=== PATIENT | female | born 1995 | race Caucasian/White ===

== ENCOUNTER → 2021-06-20 08:53 | Outpatient (CLI) | payer OTHER, SELFPAY ==
[2021-06-20 12:22] LABS: COVID19 -Nasal RAPID Negative (Negative)
== END ==
PROVIDERS: Visit Provider Nurse Practitioner Family
DX: Z20.822 Contact with and (suspected) exposure to COVID-19 (principal); Z01.812 Encounter for preprocedural laboratory examination
CPT/HCPCS: 87635

== ENCOUNTER → 2021-06-21 14:01 | Outpatient (CLI) | payer OTHER, SELFPAY ==
--- NOTE | 2021-06-21 14:04 | DI.NM.S_ITS ---
PROCEDURE: NM EXERCISE TREADMILL NON NUC COMPARISON: None. INDICATIONS: Chest pain, unspecified FINDINGS: Resting ECG sinus rhythm. Anderson protocol 9 minutes, 24 seconds; peak heart rate 185 (94% peak predicted); max blood pressure 160/92; 10.1 METS; TINO +11%. Exercise ECG sinus tachycardia, no ST segment changes, no arrhythmia. IMPRESSION: 1. No evidence of exercise-induced ischemia or arrhythmia. 2. Good exercise capacity. 3. Normal blood pressure response to exercise. Dictated by: Zenobia Apodaca D.O. on 06/21/2021 at 15:51 Approved by: Zenobia Apodaca M.D. on 06/21/2021 at 15:55
== END ==
PROVIDERS: Referring Provider Student in an Organized Health Care Education/Training Program; Visit Provider Student in an Organized Health Care Education/Training Program
DX: R07.9 Chest pain, unspecified (principal)
CPT/HCPCS: 93017

== ENCOUNTER → 2022-02-01 10:29 | Outpatient (CLI) | payer OTHER, SELFPAY ==
[2022-02-01 14:13] LABS: Urine Chlamydia NOT DETECTED; Urine N gonorrhoeae NOT DETECTED
== END ==
PROVIDERS: Visit Provider Family Medicine
DX: Z34.81 Encounter for supervision of other normal pregnancy, first trimester (principal); Z3A.09 9 weeks gestation of pregnancy
CPT/HCPCS: 87491; 87591

== ENCOUNTER → 2022-02-01 10:44 | Outpatient (CLI) | payer OTHER, SELFPAY ==
[2022-02-01 11:53] LABS: Add Manual Diff / Slide Review NO; Basophils Absolute Auto 0 /uL (0-100); Basophils Percent Auto 0.6 % (0-2); Eosinophils Absolute Auto 100 /uL (0-450); Eosinophils Percent Auto 1.9 % (2-4); Hematocrit 37.8 % (36-46); Hemoglobin 13.1 g/dL (12.0-16.0); Lymphocytes Absolute Auto 1500 /uL (1100-4500); Lymphocytes Percent Auto 19.1 % (25-40); Mean Corpuscular HGB Conc 34.7 % (30-36); Mean Corpuscular Hemoglobin 31.3 PG (26-34); Mean Corpuscular Volume 90.2 fL (80-100); Monocytes Absolute Auto 500 /uL (0-900); Monocytes Percent Auto 6.3 % (3-14); Neutrophils Absolute Auto 5500 /uL (1500-7000); Neutrophils Percent Auto 72.1 % (50-75); Platelet Count 212 X10^3/uL (150-400); Red Blood Cell Count 4.19 X10^6/uL (4.0-5.2); Red Cell Distribution Width 12.1 % (11.6-14.8); White Blood Cell Count 7.6 X10^3/uL (4.5-11.0)
[2022-02-01 12:23] LABS: Appearance Urine UA CLEAR; Bilirubin Urine UA NEGATIVE (NEGATIVE); Color Urine UA YELLOW; Glucose Urine UA NEGATIVE (Negative); Ketones Urine UA NEGATIVE (NEGATIVE); Leukocyte Esterase Urine UA NEGATIVE (NEGATIVE); Nitrite Urine UA NEGATIVE (Negative); Occult Blood Urine UA NEGATIVE (Negative); Protein Urine UA NEGATIVE (Negative); Specific Gravity Urine UA <=1.005 (1.000-1.035); Urobilinogen Urine UA 0.2 E.U./dL (0.2)
[2022-02-01 12:25] LABS: pH Urine UA 6.5 (4.5-8.0)
[2022-02-02 06:56] LABS: RPR Screen Non Reactive (Non Reactive)
[2022-02-02 12:18] LABS: Varicella IgG Antibody 266 index (Immune >165)
[2022-02-02 20:01] LABS: Rubella Antibody IgG 52.1 IU/mL (>15)
[2022-02-02 20:03] LABS: HIV 1 & 2 Ab/Ag 4th Gen Combo NEGATIVE (NEGATIVE); Hep C Virus Ab w/Reflex Quant NEGATIVE s/c (NEGATIVE); Hepatitis B Surface Antigen NEGATIVE s/c (NEGATIVE)
== END ==
PROVIDERS: Referring Provider Family Medicine; Visit Provider Family Medicine
DX: Z36.89 Encounter for other specified antenatal screening (principal); Z11.3 Encounter for screening for infections with a predominantly sexual mode of transmission; Z3A.09 9 weeks gestation of pregnancy
CPT/HCPCS: 36415; 80055; 81003; 86787; 86803; 86850; 86900; 86901; 87086; 87389; 87491; 87591

== ENCOUNTER → 2022-03-29 15:25 | Outpatient (CLI) | payer OTHER, BC, SELFPAY ==
[2022-03-31 19:57] LABS: Estriol, Free 1.08 ng/mL (.); Inhibin A, Dimeric 128.83 pg/mL (.); Inhibin A, MoM 0.87 (.); Maternal Ethnicity Caucasian (.); Maternal Weight 157 lbs (.); Number of Fetuses No (.); OSBR Risk 1 IN 10000 (.); Results Report (.); Test Results *Screen Negative* (.); hCG, MoM 1.19 (.); hCG, Serum 35557 mIU/mL (.)
== END ==
PROVIDERS: PCP Student in an Organized Health Care Education/Training Program; Referring Provider Family Medicine; Visit Provider Family Medicine
DX: Z34.92 Encounter for supervision of normal pregnancy, unspecified, second trimester (principal); Z3A.17 17 weeks gestation of pregnancy
CPT/HCPCS: 36415; 82105; 82677; 84702; 86336

== ENCOUNTER → 2022-04-14 10:44 | Outpatient (CLI) | payer OTHER, BC, SELFPAY ==
--- NOTE | 2022-04-14 10:45 | DI.US.S_ITS ---
PROCEDURE: US OB >= 14 WEEKS FETUS INDICATIONS: Anatomy Screen OUTSIDE/PRIOR DATING DATA: Last menstrual period (LMP): 11/25/2021 LMP-based estimated date of delivery (EILZABETH): 09/01/2022 First dating scan (date and location): 04/14/2022 Estimated date of delivery (ELIZABETH) from first dating scan: 08/29/2022 TECHNIQUE: Real-time scanning was performed of the fetus, with image documentation and biometric measurements. Endovaginal scanning: None COMPARISON: None. FINDINGS: General: A single living intrauterine gestation is present. Presentation: Transverse maternal left Placenta: Anterior, without previa Amniotic fluid index: 13.5 centimeters heart rate: 155 beats per minute Maternal cervical canal: 4.6 centimeters biometrics: Biparietal diameter: 4.9 centimeters Head circumference: 18 centimeters Abdominal circumference: 15.1 centimeters Femur length: 3.3 centimeters Clinically estimated gestational age: 20 weeks Composite gestational age from present scan: 20 weeks and 3 days Estimated weight and percentile: 344 grams, 62 percentile Anatomic survey: Neuro: Ventricles are non-dilated at less than 10 mm. Cisterna magna is normal at 3-11 mm. Cerebellum is normal in size and morphology. Nuchal skin fold: Normal at less than 6 mm between 14-21 weeks gestational age. Face: Nose/lips and profile view are not well seen. Spine: No evidence for spina bifida. Heart: 4-chambered heart is present. Outflow tracts are not well seen. Diaphragm: Diaphragm is intact. Stomach: Left-sided stomach is present. Kidneys: No hydronephrosis. Normal is less than 5 mm in 2nd trimester, less than 7 mm in 3rd trimester. Cord: 3-vessel cord has orthotopic insertion. Bladder: Normal in size. Extremities: All 4 extremities identified. IMPRESSION: Living intrauterine gestation with at 20 weeks of clinical age, with concordant biometry today measuring at the 62 percentile. Cardiac outflow tracts, nose/lips, and profile view are not well seen on today's study. Follow-up imaging could be obtained. We strive to produce accurate, complete, and clear reports of imaging services. To assist us in improving patient care, this report was composed using standard report templates and voice recognition software. Therefore, it may contain abnormal punctuation, insertions and/or omissions. Occasional wrong-word or sound-alike substitutions may occur. Though we review the report and make efforts to correct it, we do recommend that the report be read carefully in proper context to recognize any text inaccuracies. Dictated by: Campos Blackburn M.D. on 04/14/2022 at 18:58 Approved by: Campos Blackburn M.D. on 04/14/2022 at 19:04
== END ==
PROVIDERS: PCP Student in an Organized Health Care Education/Training Program; Referring Provider Family Medicine; Visit Provider Family Medicine
DX: Z36.89 Encounter for other specified antenatal screening (principal); Z3A.20 20 weeks gestation of pregnancy
CPT/HCPCS: 76811

== ENCOUNTER → 2022-04-26 11:32 | Outpatient (CLI) | payer OTHER, BC, SELFPAY ==
--- NOTE | 2022-04-26 11:34 | DI.US.S_ITS ---
PROCEDURE: US OB FOLLOW UP INDICATIONS: facial, cardiac not well seen on initial US OUTSIDE/PRIOR DATING DATA: Last menstrual period (LMP): 11/25/2021. LMP-based estimated date of delivery (ELIZABETH): 09/01/2022. First dating scan (date and location): 04/14/2022. Estimated date of delivery (ELIZABETH) from first dating scan: 08/29/2022. TECHNIQUE: Real-time scanning was performed of the fetus, with image documentation. Endovaginal scanning: Now COMPARISON: None. FINDINGS: A single living intrauterine gestation is present. Presentation: Breech. Placenta: Placental position is anterior, without previa. Amniotic fluid index: 11.7 cm, normal range is 5-24 cm. heart rate: Moderate 45 beats per minute. Maternal cervical canal: 4.8 cm long. Normal lower limit is 2.5 cm. Estimated gestational age from initial scan: 21 weeks 5 days Limited survey of anatomy includes normal face/lip soft orbits, left and right ventricular outflow tracts. IMPRESSION: 1. Single living intrauterine gestation. 2. Limited normal survey of anatomy as above. Dictated by: Evan Kumar M.D. on 04/26/2022 at 15:52 Transcribed by: ALEXA on 04/26/2022 at 15:54 Approved by: Evan Kumar M.D. on 04/26/2022 at 16:45
== END ==
PROVIDERS: PCP Student in an Organized Health Care Education/Training Program; Referring Provider Family Medicine; Visit Provider Family Medicine
DX: Z34.90 Encounter for supervision of normal pregnancy, unspecified, unspecified trimester (principal); Z36.2 Encounter for other antenatal screening follow-up
CPT/HCPCS: 76816